=== PATIENT | female | born 1990 | race Hispanic/Latino ===

== ENCOUNTER 2020-05-19 15:50 | Emergency (ER) | payer MEDICAID, OTHER ==
[2020-05-19] MEDS ORDERED: METHYLPREDNISOLONE SOD SUCC 125MG/2ML VIAL ONE (16:33)
[2020-05-19] MEDS ORDERED: ALBUTEROL SULFATE 0.083% 2.5 MG/3 ML INH IH ONE (16:41)
== END 2020-05-19 19:03 | disposition home or self-care (01) ==
LOC: EDH 15:50
DX: J45.21 Mild intermittent asthma with (acute) exacerbation (principal)
CPT/HCPCS: 71045; 94640; 96372; 99283; J2930

== ENCOUNTER 2021-10-06 21:53 | Emergency (ER) | payer OTHER ==
[~2021-10-06] VITALS: Ht 162.6 cm; Wt 91.6 kg
[2021-10-06] MEDS ORDERED: CYCL10TA16 PO (22:17)
[2021-10-06] MEDS ORDERED: IBUP-2070 PO (22:17)
[2021-10-06] MEDS ORDERED: CYCLOBENZAPRINE HCL 10 MG TABLET PO ONE (22:30)
[2021-10-06] MEDS ORDERED: KETOROLAC 30MG VIAL (30MG/ML) IM ONE (22:30)
[2021-10-06 22:31] VITALS: BP 134/80
[2021-10-06 22:51] LABS: APPEARANCE,URINE CLEAR (CLEAR); BILIRUBIN,URINE NEGATIVE (NEGATIVE); COLOR,URINE YELLOW (YELLOW); GLUCOSE, URINE (UA) NEGATIVE (NEGATIVE); KETONES,URINE NEGATIVE (NEGATIVE); LEUKOCYTE ESTERASE ,URINE SMALL (NEGATIVE); NITRATE,URINE NEGATIVE (NEGATIVE); OCCULT BLOOD,URINE NEGATIVE (NEGATIVE); PROTEIN,URINE NEGATIVE (NEGATIVE); UROBILINOGEN,URINE 0.2 mg/dL (0.2-1.0)
[2021-10-06 22:53] LABS: HCG,QUALITATIVE URINE NEGATIVE (NEGATIVE)
[2021-10-06 23:09] LABS: BACTERIA,URINE None Seen /HPF (None Seen); RBC,URINE None Seen /HPF (0-1); SQUAMOUS EPITHELIAL CELL,UR Few /HPF (0-2); WBC,URINE None Seen /HPF (0-1)
== END 2021-10-06 23:02 | disposition home or self-care (01) ==
LOC: EDH 21:53
DX: S29.012A Strain of muscle and tendon of back wall of thorax, initial encounter (principal); K21.9 Gastro-esophageal reflux disease without esophagitis; Z98.890 Other specified postprocedural states; Z79.899 Other long term (current) drug therapy; X58.XXXA Exposure to other specified factors, initial encounter; Y93.89 Activity, other specified; Y92.89 Other specified places as the place of occurrence of the external cause; Y99.8 Other external cause status
CPT/HCPCS: 99285; 71045; 81001; 81025; 96372; 93005; J1885